=== PATIENT | male | born 1990 | race Hispanic/Latino ===

== ENCOUNTER 2018-12-04 16:43 | Inpatient (IN) | payer OTHER ==
[2018-12-04] MEDS ORDERED: NA CHLORIDE 0.9% 2,000 ML ONE (16:53)
[2018-12-04] MEDS ORDERED: LORazepam 2 MG/ML VIAL ONE ×3 (16:54→18:13)
[2018-12-04 17:17] LABS: Absolute Lymphocytes (CBC) 1.9 K/uL (0.7-4.9); Basophils % 0.3 % (0-1.3); Eosinophils % 0.9 % (0-4.4); Hematocrit 41.2 % (39.6-49.0); Lymphocytes % 13.4 % (15.3-44.8); MPV 9.6 fL (7.6-11.3); RBC Red Blood Cell Count 4.65 M/uL (4.33-5.43)
[2018-12-04 17:28] LABS: Protime INR 1.34
[2018-12-04] MEDS ORDERED: D50W 25 GM/50 ML SYRINGE IV ONE (17:38)
[2018-12-04] MEDS ORDERED: ACETAMINOPHEN 650MG/RECT SUPP PR ONE (17:45)
[2018-12-04 17:51] LABS: Barbiturates NEGATIVE (NEGATIVE); Benzodiazepines NEGATIVE (NEGATIVE); Cocaine NEGATIVE (NEGATIVE); METHAMPHETAM NEGATIVE (NEGATIVE); Methadone NEGATIVE (NEGATIVE); Opiates NEGATIVE (NEGATIVE); Phencyclidine NEGATIVE (NEGATIVE); THC Cannibis NEGATIVE (NEGATIVE)
[2018-12-04 18:28] LABS: Urine Blood 3+ (NEG); Urine Glucose NEGATIVE (NEG); Urine Protein 2+ (NEG); Urine Specific Gravity >1.030 (1.005-1.030); Urine pH 5.5 (5.0-7.0)
--- NOTE | 2018-12-04 18:32 | RAD REPORT ---
EXAM DESCRIPTION: CT - Head Brain Wo Cont - 12/04/2018 6:12 pm CLINICAL HISTORY: Seizure, transient alteration of awareness COMPARISON: None. TECHNIQUE: Axial 5 mm thick images of the head were obtained without IV contrast. All CT scans are performed using dose optimization technique as appropriate and may include automated exposure control or mA/KV adjustment according to patient size. FINDINGS: No intracranial hemorrhage, mass, edema or shift of mid-line structures. No acute infarcti on changes seen. No abnormal extra-axial fluid collections. Ventricles are normal. Mastoid air cells are clear. Patchy ethmoid mucosal thickening. No air-fluid levels in the sinuses. No acute bony findings. IMPRESSION: Negative non-contrast CT head examination for acute or significant finding.
--- NOTE | 2018-12-04 18:49 | ER ---
Nurse's Notes [facility] Name: Mike Camp Age: 28 yrs Sex: Male : 1990 Arrival Date: 12/04/2018 Time: 16:48 Bed 4 Private MD: Diagnosis: Heat exhaustion, unspecified;Heat syncope;Heatstroke and sunstroke;Hyperthermia;Delirium due to known physiological condition Presentation: 12/04 16:49 Presenting complaint: EMS states: AMS AND SZ AFTER HEAT EXPOSURE. Transition of care: bp patient was not received from another setting of care. Onset of symptoms is unknown. Risk Assessment: Do you want to hurt yourself or someone else? Patient reports no desire to harm self or others. Initial Sepsis Screen: Does the patient meet any 2 criteria? Altered Mental Status. HR > 90 bpm. Yes Does the patient have a suspected source of infection? No. Patient's initial sepsis screen is negative. Care prior to arrival: Medication(s) given: Normal saline infusion, 1000 mL, IV initiated. 20 GA, in the right hand. 16:49 Method Of Arrival: EMS: [facility] bp 16:49 Acuity: PRADEEP 2 bp Triage Assessment: 16:51 General: Appears distressed, uncomfortable, Behavior is anxious, restless. Pain: Unable bp to use pain scale. Does not appear to understand pain scale. EENT: No deficits noted. Neuro: Level of Consciousness is confused, Oriented to person. Cardiovascular: Rhythm is. Cardiovascular: Rhythm is sinus tachycardia. Respiratory: Airway is patent Respiratory effort is even, unlabored, Respiratory pattern is regular, symmetrical. GI: No signs and/or symptoms were reported involving the gastrointestinal system. : No signs and/or symptoms were reported regarding the genitourinary system. Derm: No deficits noted. Musculoskeletal: No deficits noted. Historical: - Allergies: 16:51 No Known Allergies; bp - Home Meds: 16:51 Unable to obtain [Active]; bp - PMHx: 16:51 Unable to obtain; bp - Immunization history:: Adult Immunizations unknown. - Social history:: Smoking status: unknown. - Ebola Screening: : No symptoms or risks identified at this time. - History obtained from: EMS. Screenin:50 Abuse screen: Denies threats or abuse. Denies injuries from another. Nutritional bp screening: No deficits noted. Tuberculosis screening: No symptoms or risk factors identified. Fall Risk No fall in past 12 months (0 pts). No secondary diagnosis (0 pts). IV access (20 points). Ambulatory Aid- None/Bed Rest/Nurse Assist (0 pts). Gait- Normal/Bed Rest/Wheelchair (0 pts) Mental Status- Overestimates/Forgets Limitations (15 pts.). Total Blackburn Fall Scale indicates Low Risk Score (25-44 pts). Fall prevention measures have been instituted. Side Rails Up X 2 Placed close to Nursing Station Frequent Obs/Assesments occuring As available Patient and Family Educated on Fall Prevention Program and strategies. Assessment: 16:51 General: SEE TRIAGE NOTE. bp 17:27 Reassessment: VS IMPROVING, CORE TEMP STABLE AND DECREASING. bp 17:51 Reassessment: FAMILY AT B/S. PT REMAINS OBTUNDED, BUT VS IMPROVING. bp 18:23 Reassessment: PT RETURNED FROM CT. ALL CURRENT ORDERS COMPLETED. bp 19:00 Reassessment: Patient and/or family updated on plan of care and expected duration. Pain tl1 level reassessed. General: Appears in no apparent distress. Behavior is arouses to sternal rub. Pain: Unable to use pain scale. Patient is unresponsive. 19:35 Reassessment: Dr. Miller at bedside, BP 80/47; Verbal order to administer NS 1 L lp1 bolus at this time. 21:27 Reassessment: when preparing the patient to move to ICU we noted that the patient's dm5 clothes were not in the room. We contacted the ambulance service that brought the patient and they stated they did not have the patient's clothes. Spoke with coworker to see if they were with the patient when the patient was loaded on the ambulance. They were not but they were able to contact someone that was. The coworker stated the patient's clothes and work boots were placed in the patient's truck and that the coworker here has access to the patient's truck to retrieve those items. I called ICU to notify parent's of the patient that the patient's clothes and work boots were located in his truck. Vital Signs: 16:51 BP 110 / 53; Pulse 143; Resp 21; Temp 103(A); Pulse Ox 100% ; Weight 68.04 kg; bp 17:00 BP 114 / 60; Pulse 128; Resp 34; Temp 100.1(C); Pulse Ox 97% on 2 lpm NC; bp 17:27 BP 106 / 50; Pulse 108; Resp 25; Temp 100.0(C); Pulse Ox 100% ; bp 17:50 BP 110 / 53; Pulse 100; Resp 22; Temp 99.1; Pulse Ox 100% ; bp 18:24 BP 105 / 56; Pulse 105; Resp 26; Temp 99.1; Pulse Ox 100% ; bp 19:14 BP 88 / 60; Pulse 101; Resp 20; Temp 98.8; Pulse Ox 100% ; Pain 0/10; tl1 19:43 BP 96 / 55; Pulse 97; Resp 20; Temp 98.6(C); Pulse Ox 100% ; lp1 NIH Stroke Scale Scores: 16:51 NIHSS Score: 4 bp ED Course: 16:48 Patient arrived in ED. bp 16:50 Triage completed. bp 16:50 Derrick Avilez MD is Attending Physician. rn 16:50 Patient has correct armband on for positive identification. Placed in gown. Bed in low bp position. Call light in reach. Side rails up X2. automotive parts advisor on. Pulse ox on. NIBP on. 16:51 Arm band placed on. bp 16:51 Maintain EMS IV. Dressing intact. Good blood return noted. Site clean \T\ dry. Gauge \T\ bp site: 20 GAUGE R HAND. 16:55 Inserted saline lock: 18 gauge in right antecubital area, using aseptic technique. bp Blood collected. 17:12 EKG done, by waste management recycling technician. reviewed by Derrick Avilez MD. dt2 17:27 Baldev Yanez, RN is Primary Nurse. bp 17:58 Radiology exam delayed due to SAID TO WAIT SO THEY CAN GIVE PATIENT MORE ml MEDICATION. 18:12 CT Head Brain wo Cont In Process Unspecified. EDMS 18:48 Ladi Tilley MD is Hospitalizing Provider. rn 18:55 XRAY Chest (1 view) In Process Unspecified. EDMS 21:09 No provider procedures requiring assistance completed. Patient admitted, IV remains in tl1 place. Administered Medications: 16:51 Drug: Ativan 2 mg Route: IVP; Site: right antecubital; bp 17:36 Follow up: Response: No adverse reaction bp 16:52 Drug: NS 0.9% 1000 ml Route: IV; Rate: 1000 ml; Site: right hand; bp 19:00 Follow up: IV Status: Completed infusion; IV Intake: 1000ml tl1 16:52 Drug: NS 0.9% 1000 ml Route: IV; Rate: 1000 ml; Site: right antecubital; bp 19:00 Follow up: IV Status: Completed infusion tl1 17:35 Not Given (Other Intervention Used): Tylenol 1000 mg PO once bp 17:35 Drug: Tylenol Suppository 650 mg Route: UT; bp 17:49 Follow up: Response: No adverse reaction bp 17:35 Drug: Ativan 2 mg Route: IVP; Site: right antecubital; bp 17:49 Follow up: Response: No adverse reaction bp 17:35 Drug: D50W 50 ml Route: IVP; Site: right antecubital; bp 17:49 Follow up: Response: No adverse reaction bp 17:59 Drug: Ativan 2 mg Route: IVP; Site: right antecubital; la1 18:45 Follow up: Response: No adverse reaction tl1 19:13 Drug: Keppra 1000 mg Route: IV; Rate: 1 calculated rate; Site: right antecubital; tl1 19:31 Follow up: IV Status: Completed infusion; IV Intake: 100ml tl1 19:13 Drug: D5-1/2 NS with KCl 20 mEq/L 1000 ml Route: IV; Rate: 100 ml/hr; Site: right hand; tl1 21:10 Follow up: IV Status: Infusion continued upon admission tl1 19:35 Drug: NS 0.9% 1000 ml {Note: Verbal order by Dr. Miller.} Route: IV; Rate: 1000 ml; lp1 Site: right antecubital; 21:10 Follow up: IV Status: Completed infusion; IV Intake: 1000ml tl1 Point of Care Testing: Blood Glucose: 17:25 Blood Glucose: 64 mg/dL; ph 17:35 Blood Glucose: 132 mg/dL; iw Ranges: Intake: 19:00 IV: 1000ml; Total: 1000ml. tl1 19:31 IV: 100ml; Total: 1100ml. tl1 21:08 PO: 0ml; IV: 4000ml; Total: 5100ml. tl1 21:10 IV: 1000ml; Total: 6100ml. tl1 Output: 21:08 Urine: 600ml ([place]); Total: 600ml. tl1 Outcome: 18:49 Decision to Hospitalize by Provider. rn 21:09 Admitted to ICU accompanied by nurse, via stretcher, with oxygen, on monitor, with tl1 chart, Report called to Carol COBB 21:09 critical 21:09 Instructed on the need for admit. 21:20 Patient left the ED. tl1 NIH Stroke Scale - NIH Stroke Score Date: 12/04/2018 Time: 16:51 Total Score = 4 1a. Level of Consciousness (LOC) - 1(Not Alert) 1b. Level of Consciousness (LOC) (Year \T\ Age) - 1(One) 1c. LOC Commands (Open \T\ Closes Eyes/Director Systems) - 1(One) 2. Best Gaze (Lateral Gaze Paresis) - 0(Normal) 3. Visual Field Loss - 0(No visual loss) 4. Facial Palsy - 0(Normal) 5a. Left Arm: Motor (10-second hold) - 0(No drift) 5b. Right Arm: Motor (10-second hold) - 0(No drift) 6a. Left Leg: Motor (5-second hold - always test supine) - 0(No drift) 6b. Right Leg: Motor (5-second hold - always test supine) - 0(No drift) 7. Limb Ataxia (finger/nose \T\ heel/gandhi - test with eyes open) - 0(Absent) 8. Sensory Loss (pinprick arms/legs/face) - 0(Normal) 9. Best Language: Aphasia (description/naming/reading) - 1(Mild to moderate aphasia) 10. Dysarthria (speech clarity - read or repeat words) - 0(Normal) 11. Extinction and Inattention (visual/tactile/auditory/spatial/personal) - 0(No abnormality) Initials: bp Signatures: Dispatcher [employer] EDAgustina Sam, RN RN dm5 Miroslava Brannon RN RN iw Lopez, Melissa ml Nieto, Roman, MD MD rn Pena, Laura, RN RN lp1 Miguel Calle RN RN la1 Shanika Bentley, RN RN tl1 Lola Flores RN Baldev Calderón ph RN RN bp [place], Sybil dt2 Corrections: (The following items were deleted from the chart) 21:19 21:13 Reassessment: No changes from previously documented assessment. Patient tl1 and/or family updated on plan of care and expected duration. Pain level reassessed. Patient states symptoms have improved. tl1
--- NOTE | 2018-12-04 18:50 | EDPHYS ---
Physician Documentation [facility] Name: Don Camp Age: 28 yrs Sex: Male : 1990 Arrival Date: 12/04/2018 Time: 16:48 Bed 4 Private MD: ED Physician Derrick Avilez HPI: 12/04 16:55 This 28 yrs old Male presents to ER via EMS with complaints of Altered Mental rn Status, Heat Exposure. 16:55 The patient presents with confusion, disorientation. Onset: The symptoms/episode rn began/occurred today. Possible causes: unknown. Current symptoms: In the emergency department the patient's symptoms are unchanged from the initial presentation. It is unknown whether or not the patient has had similar symptoms in the past. 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 Only given fluids by EMS, no meds. . Historical: - Allergies: 16:51 No Known Allergies; bp - Home Meds: 16:51 Unable to obtain [Active]; bp - PMHx: 16:51 Unable to obtain; bp - Immunization history:: Adult Immunizations unknown. - Social history:: Smoking status: unknown. - Ebola Screening: : No symptoms or risks identified at this time. - History obtained from: EMS. ROS: 16:55 Unable to obtain ROS due to altered mental status. rn Exam: 16:55 Constitutional: Well developed healthy appearing male who seems agitated, awake, rn answers questions with "don". No seizure like activity. Head/Face: Normocephalic, atraumatic. Eyes: Pupils 3mm, reactive and equal, no nystagmus. ENT: dry MM Neck: Trachea midline, no thyromegaly or masses palpated, and no cervical lymphadenopathy. Supple, full range of motion without nuchal rigidity, or vertebral point tenderness. No Meningismus. Cardiovascular: tachycardic, regular, no murmur Respiratory: + tachypnea with clear bilateral breath sounds Abdomen/GI: soft, non-tender Skin: Warm, diaphoretic, no petechiae or purpura MS/ Extremity: Pulses equal, no cyanosis. Neurovascular intact. Full, normal range of motion. Equal circumference. Neuro: Awake, alert, agitated, moves all 4 extremities 17:21 ECG was reviewed by the Attending Physician. rn Vital Signs: 16:51 BP 110 / 53; Pulse 143; Resp 21; Temp 103(A); Pulse Ox 100% ; Weight 68.04 kg; bp 17:00 BP 114 / 60; Pulse 128; Resp 34; Temp 100.1(C); Pulse Ox 97% on 2 lpm NC; bp 17:27 BP 106 / 50; Pulse 108; Resp 25; Temp 100.0(C); Pulse Ox 100% ; bp 17:50 BP 110 / 53; Pulse 100; Resp 22; Temp 99.1; Pulse Ox 100% ; bp 18:24 BP 105 / 56; Pulse 105; Resp 26; Temp 99.1; Pulse Ox 100% ; bp 19:14 BP 88 / 60; Pulse 101; Resp 20; Temp 98.8; Pulse Ox 100% ; Pain 0/10; tl1 19:43 BP 96 / 55; Pulse 97; Resp 20; Temp 98.6(C); Pulse Ox 100% ; lp1 NIH Stroke Scale Scores: 16:51 NIHSS Score: 4 bp Procedures: 18:47 Lumbar Puncture: Patient placed in left lateral decubitus position. Prepped with rn Betadine. Draped using sterile technique. Collected 8 ml's of clear fluid. Sample sent to lab. Puncture site dressed with band aid, Patient tolerated well. MDM: 16:50 Patient medically screened. rn 17:28 ED course: Pt with hypoglycemia, in 60s, given AMS, given 1 amp D50, will start D5 rn drip.. 18:03 ED course: Pt was showing improvement of vital signs, parents in room, updated, sat up rn and became more agitated with tremors, no gross seizure activity, 2 mg ativan given with resolution. Some urine output noted, and glucose 132. . 18:24 Differential Diagnosis: electrolyte abnormality, hypoglycemia, intracranial bleed, rn overdose, seizure, sepsis, volume depletion, heat exhaustion/heat stroke. Data reviewed: vital signs, nurses notes, lab test result(s), EKG, radiologic studies, CT scan, and as a result, I will admit patient. Counseling: I had a detailed discussion with the patient and/or guardian regarding: the historical points, exam findings, and any diagnostic results supporting the discharge/admit diagnosis, lab results, radiology results, the need for further work-up and treatment in the hospital. Response to treatment: the patient's symptoms have markedly improved after treatment, and as a result, I will admit patient. Admission orders: after a detailed discussion of the patient's condition and case, the admit orders are written by me. ED course: Pt admitted to Dr. Tilley, notified \\T\\ 1816. 18:29 ED course: Father states has known rash, similar to one on chest, has seen dermatology rn for it. . 18:47 ED course: CSF obtained to rule out infectious cause, although heat related illness rn still most likely. . 19:02 ED course: Family and best friend here, all deny that he is type to overdose, does not rn take daily medication, has never had this happen before, state first day on this big job for him, worked through lunch without breaks, refused water, and has been very stressed about performing well at this specific job. Has never taken drugs, and drug screen negative. . 12/04 16:51 Order name: Acetaminophen 12/04 16:51 Order name: Basic Metabolic Panel 12/04 16:51 Order name: CBC with Diff; Complete Time: 17:28 12/04 16:51 Order name: ETOH Level; Complete Time: 18:14 12/04 16:51 Order name: Hepatic Function 12/04 16:51 Order name: PT-INR; Complete Time: 17:36 12/04 16:51 Order name: Ptt, Activated; Complete Time: 17:36 12/04 16:51 Order name: Salicylate 12/04 16:51 Order name: Urine Drug Screen; Complete Time: 18:05 12/04 16:54 Order name: Lactate; Complete Time: 18:26 12/04 16:54 Order name: CK; Complete Time: 17:47 12/04 16:54 Order name: Blood Culture Adult (2) 12/04 16:54 Order name: Procalcitonin; Complete Time: 18:05 12/04 17:40 Order name: Glucose, Ancillary Testing; Complete Time: 17:44 EDWI 12/04 16:54 Order name: CT Head Brain wo Cont; Complete Time: 18:49 12/04 17:36 Order name: XRAY Chest (1 view) 12/04 17:43 Order name: Urine Dipstick--Ancillary (enter results); Complete Time: 18:49 [facility] 12/04 18:48 Order name: CSF Bacterial Antigens (tube 1) [facility] 12/04 18:48 Order name: Csf Culture [facility] 12/04 18:48 Order name: Fluid Cell Count,Body [facility] 12/04 18:48 Order name: Spinal Fluid Profile [facility] 12/04 18:49 Order name: CSF Culture [facility] 12/04 19:28 Order name: Glucose, Ancillary Testing [facility] 12/04 19:42 Order name: Glucose, Ancillary Testing [facility] 12/04 21:07 Order name: Lactate Sepsis 2 HR Follow-up [facility] 12/04 16:51 Order name: EKG; Complete Time: 16:52 12/04 16:51 Order name: EKG - Nurse/Tech; Complete Time: 17:01 12/04 16:51 Order name: IV Saline Lock; Complete Time: 17: 12/04 16:51 Order name: Labs collected and sent; Complete Time: 17: 12/04 16:51 Order name: Urine Dipstick-Ancillary (obtain specimen); Complete Time: 17: 12/04 18:48 Order name: LP Consents; Complete Time: 20:01 [facility] 12/04 18:48 Order name: LP Setup; Complete Time: 20:01 [facility] EC:21 Rate is 130 beats/min. Rhythm is regular. QRS [place] is Normal. IA interval is normal. rn QRS interval is normal. QT interval is normal. No Q waves. T waves are Normal. No ST changes noted. Clinical impression: Sinus tachycardia. Interpreted by me. Reviewed by me. Administered Medications: 16:51 Drug: Ativan 2 mg Route: IVP; Site: right antecubital; bp 17:36 Follow up: Response: No adverse reaction bp 16:52 Drug: NS 0.9% 1000 ml Route: IV; Rate: 1000 ml; Site: right hand; bp 19:00 Follow up: IV Status: Completed infusion; IV Intake: 1000ml tl1 16:52 Drug: NS 0.9% 1000 ml Route: IV; Rate: 1000 ml; Site: right antecubital; bp 19:00 Follow up: IV Status: Completed infusion tl1 17:35 Not Given (Other Intervention Used): Tylenol 1000 mg PO once bp 17:35 Drug: Tylenol Suppository 650 mg Route: IA; bp 17:49 Follow up: Response: No adverse reaction bp 17:35 Drug: Ativan 2 mg Route: IVP; Site: right antecubital; bp 17:49 Follow up: Response: No adverse reaction bp 17:35 Drug: D50W 50 ml Route: IVP; Site: right antecubital; bp 17:49 Follow up: Response: No adverse reaction bp 17:59 Drug: Ativan 2 mg Route: IVP; Site: right antecubital; la1 18:45 Follow up: Response: No adverse reaction tl1 19:13 Drug: Keppra 1000 mg Route: IV; Rate: 1 calculated rate; Site: right antecubital; tl1 19:31 Follow up: IV Status: Completed infusion; IV Intake: 100ml tl1 19:13 Drug: D5-1/2 NS with KCl 20 mEq/L 1000 ml Route: IV; Rate: 100 ml/hr; Site: right hand; tl1 21:10 Follow up: IV Status: Infusion continued upon admission tl1 19:35 Drug: NS 0.9% 1000 ml {Note: Verbal order by Dr. Miller.} Route: IV; Rate: 1000 ml; lp1 Site: right antecubital; 21:10 Follow up: IV Status: Completed infusion; IV Intake: 1000ml tl1 Point of Care Testing: Blood Glucose: 17:25 Blood Glucose: 64 mg/dL; ph 17:35 Blood Glucose: 132 mg/dL; iw Ranges: Critical Glucose Levels:Adult <50 mg/dl or >400 mg/dl <40 mg/dl or >180 mg/dl Disposition: 18:48 Critical Care:. rn Disposition: 12/04/18 18:49 Hospitalization ordered by Ladi Tilley for Inpatient Admission. Preliminary diagnosis are Heat exhaustion, unspecified, Heat syncope, Heatstroke and sunstroke, Hyperthermia, Delirium due to known physiological condition. - Bed requested for Intensive Care Unit. - Status is Inpatient Admission. tl1 - Condition is Stable. - Problem is new. - Symptoms have improved. UTI on Admission? No Critical care time excluding procedures: 18:48 Critical care time: Bedside Care: 35 minutes, Consultation: 5 minutes, Family rn Intervention: 5 minutes. Total time: 45 minutes NIH Stroke Scale - NIH Stroke Score Date: 12/04/2018 Time: 16:51 Total Score = 4 1a. Level of Consciousness (LOC) - 1(Not Alert) 1b. Level of Consciousness (LOC) (Year \\T\\ Age) - 1(One) 1c. LOC Commands (Open \\T\\ Closes Eyes/Beck Operator) - 1(One) 2. Best Gaze (Lateral Gaze Paresis) - 0(Normal) 3. Visual Field Loss - 0(No visual loss) 4. Facial Palsy - 0(Normal) 5a. Left Arm: Motor (10-second hold) - 0(No drift) 5b. Right Arm: Motor (10-second hold) - 0(No drift) 6a. Left Leg: Motor (5-second hold - always test supine) - 0(No drift) 6b. Right Leg: Motor (5-second hold - always test supine) - 0(No drift) 7. Limb Ataxia (finger/nose \\T\\ heel/gandhi - test with eyes open) - 0(Absent) 8. Sensory Loss (pinprick arms/legs/face) - 0(Normal) 9. Best Language: Aphasia (description/naming/reading) - 1(Mild to moderate aphasia) 10. Dysarthria (speech clarity - read or repeat words) - 0(Normal) 11. Extinction and Inattention (visual/tactile/auditory/spatial/personal) - 0(No abnormality) Initials: bp Signatures: Dispatcher [employer] [facility] Derrick Avilez MD MD rn Martinez, Eric em1 Karley Marquez RN RN lp1 Miguel Calle RN RN la1 Shanika Bentley, RN RN tl1 Nivia Camp, RN RN cg Baldev Yanez RN RN bp Corrections: (The following items were deleted from the chart) 19:22 18:49 CSF Bacterial Antigens (Tube 1 ordered. [facility] EDWI 20:21 18:49 Hospitalization Ordered by Ladi Tilley MD for Inpatient Admission. cg Preliminary diagnosis is Heat exhaustion, unspecified; Heat syncope; Heatstroke and sunstroke; Hyperthermia; Delirium due to known physiological condition. Bed requested for Intensive Care Unit. Status is Inpatient Admission. Condition is Stable. Problem is new. Symptoms have improved. UTI on Admission? No. rn 21:20 20:21 12/04/2018 18:49 Hospitalization Ordered by Ladi Tilley MD for tl1 Inpatient Admission. Preliminary diagnosis is Heat exhaustion, unspecified; Heat syncope; Heatstroke and sunstroke; Hyperthermia; Delirium due to known physiological condition. Bed requested for Intensive Care Unit. Status is Inpatient Admission. Condition is Stable. Problem is new. Symptoms have improved. UTI on Admission? No. cg
[2018-12-04] MEDS ORDERED: levETIRAcetam 1,000 MG in NA CHLORIDE 0.9% 100 ML IV ONE (19:00)
[2018-12-04] MEDS ORDERED: D5.45NS W/KCL 20MEQ 1,000 ML IV ONE (19:20)
[2018-12-04 19:30] LABS: CSF Glucose 92 mg/dL (40-70)
[2018-12-04 19:32] LABS: ALT/SGPT 18 U/L (12-78); AST/SGOT 20 U/L (15-37); Albumin 3.5 g/dL (3.4-5.0); Alkaline Phosphatase 59 U/L (45-117); BUN Blood Urea Nitrogen 20 mg/dL (7-18); Bicarbonate 17 mmol/L (21-32); Bilirubin Direct 0.2 mg/dL (0-0.2); Bilirubin Total 0.5 mg/dL (0.2-1.0); Glucose Level 102 mg/dL (74-106); Protein, Total 6.1 g/dL (6.4-8.2); Sodium Level 145 mmol/L (136-145)
[2018-12-04] MEDS ORDERED: NA CHLORIDE 0.9% 1,000 ML ONE (19:49)
--- NOTE | 2018-12-04 20:12 | P.HP ---
Certification for Inpatient Patient admitted to: Inpatient With expected LOS: >2 Midnights Practitioner: I am a practitioner with admitting privileges, knowledge of patient current condition, hospital course, and medical plan of care. Services: Services provided to patient in accordance with Admission requirements found in Title 42 Section 412.3 of the Code of Federal Regulations Patient History Date of Service: 12/04/18 Reason for admission: acute encephalopathy, heat exhaustion History of Present Illness: Mr Camp is a 28 years old male with pretty benign past medical history, who has been working outside today under high temperatures. 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 Subsequently, the patient was seen acting erratic, he was confused and disoriented. When EMS arrived found the patient febrile, and was shaking concerning for seizure activity. The patient was fine this morning before to start working. At arrival to ED, he remain disoriented, and became agitated, treated with IV Ativan. At my encounter, he was unresponsive, sedated. His BP at arrival was 110/53 HR 140 temp 103.0F. When fever decreased, HR also went down. Lab work remarkable for leukocytosis 13.9K, Creatinie 2.35, hypokalemia. CT head shows no acute abnormalities. - Past Medical/Surgical History Past Medical History: Reviewed- Non-Contributory Past Surgical History: Reviewed- Non-Contributory - Family History Family History: Reviewed- Non-Contributory - Social History Smoking Status: Never smoker CD- Drugs: No Place of Residence: Home Review of Systems is unable to be obtained (patient unresponsive) Physical Examination - Physical Exam General: In no apparent distress, Unresponsive HEENT: Atraumatic, Other (dry mucous membranes.), Sclerae nonicteric Neck: Supple, 2+ carotid pulse no bruit, No LAD, Without JVD or thyroid abnormality Respiratory: Clear to auscultation bilaterally, Normal air movement Cardiovascular: Regular rate/rhythm, Normal S1 S2 Gastrointestinal: Normal bowel sounds, No tenderness Musculoskeletal: No tenderness Integumentary: No rashes Neurological: Normal strength at 5/5 x4 extr, Normal tone, Sensation intact Lymphatics: No axilla or inguinal lymphadenopathy - Studies Laboratory Data (last 24 hrs) 12/04/18 16:50: PT 15.6 H, INR 1.34, APTT 23.8 L 12/04/18 16:50: WBC 13.9 H, Hgb 14.0, Hct 41.2, Plt Count 181 12/04/18 16:50: Sodium 145, Potassium 3.0 L, BUN 20 H, Creatinine 2.23 H, Glucose 102, Total Bilirubin 0.5, AST 20, ALT 18, Alkaline Phosphatase 59 Assessment and Plan - Problems (Diagnosis) (1) Acute encephalopathy Current Visit: Yes Status: Acute (2) Heat exhaustion Current Visit: Yes Status: Acute Qualifiers: Encounter type: initial encounter Qualified Code(s): T67.5XXA - Heat exhaustion, unspecified, initial encounter (3) Hypokalemia Current Visit: Yes Status: Acute (4) Acute renal injury Current Visit: Yes Status: Acute - Plan The patient will be admitted to ICU due to acute encephalopathy, acute renal injury, electrolyte dysfunction with possible seizure activity secondary to heat exhaustion. The patient had a LP done, W[employer] INST[employer]ER fluid analysis was negative. Will continue with aggressive IV fluid infusion, close monitoring of sensorial changes. - Advance Directives Does patient have a Living Will: No Does patient have a Durable POA for Healthcare: No - Code Status/Comfort Care Code Status Assessed: Yes Code Status: Full Code Critical Care: Yes (30 minutes critical care management)
[2018-12-04 20:14] LABS: Body Fluid Source CSF; Fluid Total Volume 11 ml
[2018-12-04 20:15] LABS: Appearance CLEAR (CLEAR); Body Fluid WBC 3 /mm^3; Color of fluid Colorless (COLORLESS)
[2018-12-04 20:20] LABS: Appearance CLEAR (CLEAR); Body Fluid Source CSF; Body Fluid WBC 3 /mm^3; Color of fluid Colorless (COLORLESS)
--- NOTE | 2018-12-04 20:44 | RAD REPORT ---
EXAM DESCRIPTION: RAD - Chest Single View - 12/04/2018 6:57 pm CLINICAL HISTORY: Transient alteration of awareness COMPARISON: None. TECHNIQUE: AP portable chest image was obtained 1854 hour . FINDINGS: Lung volumes are low. No focal lung parenchymal process. Heart and vasculature are normal. No measurable pleural effusion and no pneumothorax. No acute bony abnormality seen. No acute aortic findings suspected. IMPRESSION: No acute cardiopulmonary process.
[2018-12-04] MEDS ORDERED: ACETAMINOPHEN 500 MG TAB PO PRN (21:58)
[2018-12-04] MEDS ORDERED: ONDANSETRON 4 MG/2 ML VIAL IV PRN (21:58)
[2018-12-04] MEDS: NA CHLORIDE 0.9% 1,000 ML IV SCH (21:58)
[2018-12-04] MEDS ORDERED: ACETAMINOPHEN 650MG/RECT SUPP RECT PRN (21:58)
[2018-12-04] MEDS ORDERED: LEVETIRACETAM 500 MG/5 ML VIAL IV ONE (22:18)
[2018-12-04] MEDS ORDERED: NA CHLORIDE 0.9% 100 ML ONE (22:19)
[2018-12-05 05:39] LABS: Absolute Lymphocytes (CBC) 2.1 K/uL (0.7-4.9); Basophils % 0.4 % (0-1.3); Eosinophils % 0.1 % (0-4.4); Hematocrit 39.9 % (39.6-49.0); Lymphocytes % 20.5 % (15.3-44.8); MPV 8.4 fL (7.6-11.3); Monocytes % 10.8 % (3.3-12.3); RBC Red Blood Cell Count 4.59 M/uL (4.33-5.43)
[2018-12-05 05:56] LABS: Blood Morphology Comment NOT SEEN (NOT SEEN); Platelet Estimate DECR; Urine White Blood Cell Casts OK
[2018-12-05] MEDS: NA CHLORIDE 0.9% 1,000 ML IV SCH ×2 (06:09→17:35)
[2018-12-05 06:21] LABS: Magnesium 1.8 mg/dL (1.8-2.4); Potassium 3.9 mmol/L (3.5-5.1)
[2018-12-05] MEDS ORDERED: POTASSIUM 25 MEQ EFFERV TAB PO ONE (07:00)
[2018-12-05] MEDS ORDERED: MAGNESIUM SULFATE 1 gm IVPB 1 GM/100 ML BAG IV ONE (07:00)
--- NOTE | 2018-12-05 09:58 | EKG ---
Test Date: 2018-12-04 Test Time: 17:02:24 Retail Marketing Executive: OLI MEASUREMENT RESULTS: Intervals: Rate: 130 WI: 140 QRSD: 90 QT: 310 QTc: 456 Gautier: P: 58 WI: 140 QRS: 35 T: 48 INTERPRETIVE STATEMENTS: Sinus tachycardia Borderline ECG No previous ECG available for comparison Electronically Signed On 12-05-18 09:57:09 CDT by Amor Davis
--- NOTE | 2018-12-05 11:07 | P.CNS ---
Date of Consult: 12/05/18 Reason for Consult: MARICARMEN , rhabdomyolysis Chief Complaint: acute encephalopathy, heat exhaustion History of Present Illness: A 28 years old male with no significant PMHx pt presented with weakness, AMS pt was working in closed area with high Temp, found to have fever , a in ER 110/53 HR 140 temp 103.0F. Creatinie 2.35, hypokalemia. CT head shows no acute abnormalities. currently , no chest pain,, palpitation, nausea, vomiting or diarrhea Allergies No Known Allergies Allergy (Verified 12/04/18 22:01) Home Medications: Loratadine [Claritin] 10 mg PO DAILY PRN 12/04/18 - Past Medical/Surgical History Diabetic: No -: seasonal allergies -: Right inguinal hernia repair -: appendectomy - Family History Father Medical History: Hypertension, Lung disease - Social History Smoking Status: Unknown if ever smoked Alcohol use: Yes CD- Drugs: No Caffeine use: Yes Place of Residence: Home Physical Examination Temp Pulse Resp BP Pulse Ox 98.9 F 85 16 99/46 L 98 12/05/18 04:00 12/05/18 07:00 12/05/18 07:00 12/05/18 07:00 12/05/18 07:00 General: In no apparent distress, Oriented x3 HEENT: Atraumatic Neck: Supple, Without JVD or thyroid abnormality Respiratory: Clear to auscultation bilaterally, Normal air movement Cardiovascular: No edema, Normal pulses, Regular rate/rhythm, Normal S1 S2, No gallops, No murmurs Gastrointestinal: Normal bowel sounds, Soft and benign, Non-distended Laboratory Data (last 24 hrs) 12/04/18 16:50: PT 15.6 H, INR 1.34, APTT 23.8 L 12/04/18 16:50: WBC 13.9 H, Hgb 14.0, Hct 41.2, Plt Count 181 12/04/18 16:50: Sodium 145, Potassium 3.0 L, BUN 20 H, Creatinine 2.23 H, Glucose 102, Total Bilirubin 0.5, AST 20, ALT 18, Alkaline Phosphatase 59 - Problems (1) Acute renal injury Current Visit: Yes Status: Acute Conclusions/Impression: MARICARMEN due to Dehydration improved on IVF will order renal US UA: with bld and Prot , 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
--- NOTE | 2018-12-05 11:30 | P.PN ---
Subjective Date of Service: 12/05/18 Chief Complaint: acute encephalopathy, heat exhaustion Patient seen and examined at bedside with RN. Chart reviewed. Case discussed with nephrology. Patient at this time doing much better than before. No complaints to offer overnight. Review of Systems 10-point ROS is otherwise unremarkable Physical Examination - Vital Signs Temperature: 98.9 F Blood Pressure: 117/68 Pulse: 81 Respirations: 13 Pulse Ox (%): 99 - Physical Exam General: Alert, In no apparent distress HEENT: Atraumatic, PERRLA, EOMI Neck: Supple, JVD not distended Respiratory: Clear to auscultation bilaterally, Normal air movement Cardiovascular: Regular rate/rhythm, Normal S1 S2 Gastrointestinal: Normal bowel sounds, No tenderness Musculoskeletal: No tenderness Integumentary: No rashes Neurological: Normal speech, Normal tone, Normal affect Lymphatics: No axilla or inguinal lymphadenopathy - Studies Laboratory Data (last 24 hrs) 12/04/18 16:50: PT 15.6 H, INR 1.34, APTT 23.8 L 12/04/18 16:50: WBC 13.9 H, Hgb 14.0, Hct 41.2, Plt Count 181 12/04/18 16:50: Sodium 145, Potassium 3.0 L, BUN 20 H, Creatinine 2.23 H, Glucose 102, Total Bilirubin 0.5, AST 20, ALT 18, Alkaline Phosphatase 59 Microbiology Data (last 24 hrs): 12/04/18 18:45 Cerebral Spinal Fluid Gram Stain - Final Medications List Reviewed: Yes Assessment And Plan - Current Problems (Diagnosis) (1) Heat exhaustion Current Visit: Yes Status: Acute Plan: Patient with heat exhaustion most likely secondary to working outside in the heat causing a KI and acute encephalopathy -temperature has been within normal limits -status post 4 L of normal saline currently on IV fluids at 125 mL an hr -will continue monitor patient closely here in the hospital Qualifiers: Encounter type: initial encounter Qualified Code(s): T67.5XXA - Heat exhaustion, unspecified, initial encounter (2) Acute encephalopathy Current Visit: Yes Status: Acute Plan: Acute encephalopathy most likely secondary to heat exhaustion -currently patient is alert and oriented x3 -head CT is negative at this time -CSF fluid negative for any infectious cause (3) Rhabdomyolysis Current Visit: Yes Status: Acute Plan: Patient with rhabdomyolysis most likely secondary to heat exhaustion -IV fluids at 125 mL an hr -CK is elevated at 5096 today -will continue with fluids and monitor patient closely Qualifiers: Rhabdomyolysis type: non-traumatic Qualified Code(s): M62.82 - Rhabdomyolysis (4) Acute renal injury Current Visit: Yes Status: Acute Plan: A KI most likely secondary to rhabdo -BUN and creatinine improved markedly today -nephrology consulted. Appreciated recommendations at this time - Plan Pending clinical improvement. Will go ahead and transfer patient to the regular [facility] floor will monitor for next 24-48 hr for improvement. Discharge Plan: Home Plan to discharge in: Greater than 2 days - Code Status/Comfort Care Code Status Assessed: Yes Critical Care: No
--- NOTE | 2018-12-05 20:49 | RAD REPORT ---
EXAM DESCRIPTION: US - Renal Ultrasound-Complete - 12/05/2018 8:32 pm CLINICAL HISTORY: MARICARMEN Flank pain COMPARISON: No comparisons FINDINGS: Both kidneys are normal in size, shape and echotexture. The right kidney measures 10.2 x 4.5 x 4.4 cm. No hydronephrosis, focal mass or perinephric fluid. The left kidney measures 10.5 x 5.9 x 4.8 cm. No hydronephrosis, focal mass or perinephric fluid. The urinary bladder is incompletely distended without gross abnormality seen. IMPRESSION: Unremarkable renal sonogram.
[2018-12-06] MEDS: NA CHLORIDE 0.9% 1,000 ML IV SCH ×4 (01:27→19:35)
[2018-12-06 06:14] LABS: Magnesium 2.3 mg/dL (1.8-2.4)
--- NOTE | 2018-12-06 11:49 | P.PN ---
Subjective Date of Service: 12/06/18 Chief Complaint: acute encephalopathy, heat exhaustion Subjective: Improving Subjective pt with no PMHx, presented with AMS due to heat stroke, found to have MARICARMEN nina hazel Today no new complaints Cr down to normal will rpt CPK level Pt can be discharged of CPK <1000 Physical Examination - Vital Signs Temperature: 98.4 F Blood Pressure: 101/62 Pulse: 80 Respirations: 16 Pulse Ox (%): 98 - Physical Exam General: Alert, In no apparent distress, Oriented x3 HEENT: Atraumatic Neck: Supple, JVD not distended, No Thyromegaly, Without JVD or thyroid abnormality Respiratory: Clear to auscultation bilaterally, Normal air movement Cardiovascular: No edema, Normal pulses, Regular rate/rhythm, Normal S1 S2, No gallops, No rubs, No murmurs Gastrointestinal: Normal bowel sounds, Soft and benign Musculoskeletal: No swelling, No tenderness - Studies Microbiology Data (last 24 hrs): 12/04/18 18:45 Cerebral Spinal Fluid Gram Stain - Final Medications List Reviewed: Yes Assessment And Plan - Current Problems (Diagnosis) (1) Acute renal injury Current Visit: Yes Status: Acute - Plan MARICARMEN resolved due to Dehydration improved on IVF UA: with bld and Prot , 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
--- NOTE | 2018-12-06 12:23 | P.DS ---
Admission Date: 12/04/18 Discharge Date: 12/06/18 Disposition: ROUTINE DISCHARGE Discharge Condition: GOOD Reason for Admission: acute encephalopathy, heat exhaustion - Problems (1) Heat exhaustion Current Visit: Yes Status: Acute Qualifiers: Encounter type: initial encounter Qualified Code(s): T67.5XXA - Heat exhaustion, unspecified, initial encounter (2) Acute encephalopathy Current Visit: Yes Status: Acute (3) Rhabdomyolysis Current Visit: Yes Status: Acute Qualifiers: Rhabdomyolysis type: non-traumatic Qualified Code(s): M62.82 - Rhabdomyolysis (4) Acute renal injury Current Visit: Yes Status: Acute Brief History of Present Illness: Conrado is a 28 years old male with pretty benign past medical history, who has been working outside today under high temperatures. 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 Subsequently, the patient was seen acting erratic, he was confused and disoriented. When EMS arrived found the patient febrile, and was shaking concerning for seizure activity. The patient was fine this morning before to start working. At arrival to ED, he remain disoriented, and became agitated, treated with IV Ativan. At my encounter, he was unresponsive, sedated. His BP at arrival was 110/53 HR 140 temp 103.0F. When fever decreased, HR also went down. Lab work remarkable for leukocytosis 13.9K, Creatinie 2.35, hypokalemia. CT head shows no acute abnormalities. Hospital Course: Overall during the hospital stay patient remained stable Patient was initially admitted to the hospital for heat exhaustion was found to have elevated temperature and acute encephalopathy. Patient was admitted to the hospital with IV fluids and was monitored closely here in the hospital for 48 hr. At 48 hr patient had no acute events noted from the heat exhaustion and thus was discharged home under stable condition. Nephrology was consulted to monitor the kidney function which did improve while he was on IV fluids here in the hospital. CPK did improve here in the hospital as well. Patient was asked to follow up with primary care provider and not to work outside for the next couple of weeks to recover. Patient demonstrate understanding and thus was discharged home under stable condition Vital Signs/Physical Exam: Temp Pulse Resp BP Pulse Ox 98.4 F 80 16 101/62 98 12/06/18 11:49 12/06/18 11:49 12/06/18 11:49 12/06/18 11:49 12/06/18 11:49 General: Alert, In no apparent distress HEENT: Atraumatic, PERRLA, EOMI Neck: Supple, JVD not distended Respiratory: Clear to auscultation bilaterally, Normal air movement Cardiovascular: Regular rate/rhythm, Normal S1 S2 Gastrointestinal: Normal bowel sounds, No tenderness Musculoskeletal: No tenderness Integumentary: No rashes Neurological: Normal speech, Normal tone, Normal affect Lymphatics: No axilla or inguinal lymphadenopathy Laboratory Data at Discharge: WBC 10.2 K/uL (4.3-10.9) D 12/05/18 05:21 Hgb 14.2 g/dL (13.6-17.9) 12/05/18 05:21 Hct 39.9 % (39.6-49.0) 12/05/18 05:21 Plt Count 53 K/uL (152-406) L D 12/05/18 05:21 PT 15.6 SECONDS (9.5-12.5) H 12/04/18 16:50 INR 1.34 12/04/18 16:50 APTT 23.8 SECONDS (24.3-36.9) L 12/04/18 16:50 Sodium 144 mmol/L (136-145) 12/06/18 05:39 Potassium 4.0 mmol/L (3.5-5.1) 12/06/18 05:39 BUN 9 mg/dL (7-18) 12/06/18 05:39 Creatinine 1.05 mg/dL (0.55-1.3) 12/06/18 05:39 Glucose 78 mg/dL (74-106) 12/06/18 05:39 Magnesium 2.3 mg/dL (1.8-2.4) D 12/06/18 05:39 Total Bilirubin 0.5 mg/dL (0.2-1.0) 12/04/18 16:50 AST 20 U/L (15-37) 12/04/18 16:50 ALT 18 U/L (12-78) 12/04/18 16:50 Alkaline Phosphatase 59 U/L (45-117) 12/04/18 16:50 Home Medications: Loratadine [Claritin*] 10 mg PO DAILY PRN 12/04/18 Diet: Regular Activity: Ad tori
[2018-12-06 12:39] LABS: CKMB Creatine Kinase MB 11.7 ng/mL (0.3-3.6)
[2018-12-07] MEDS: NA CHLORIDE 0.9% 1,000 ML IV SCH ×2 (00:24→06:07)
[2018-12-07 20:53] LABS: HBsAG Nonreactive (Nonreactive); Hepatitis A IgM Antibody Nonreactive
[2018-12-08 10:16] LABS: HIV AG/AB 4TH GEN Non-reactive (Non-reactive)
== END 2018-12-07 09:50 | disposition home or self-care (01) | DRG 923 ==
LOC: ER 16:43 → ERHOLD 20:03 → 3RD-ICU 20:42 → 4TH 12-05 15:35
PROVIDERS: ADMIT Family Medicine; ATTEND Family Medicine
PROC: 009U3ZX Drainage of Spinal Canal, Percutaneous Approach, Diagnostic (ICD-10-PCS; principal; 2018-12-04)
DX: T67.5XXA Heat exhaustion, unspecified, initial encounter (principal); G93.40 Encephalopathy, unspecified; N17.9 Acute kidney failure, unspecified; M62.82 Rhabdomyolysis; E86.0 Dehydration; D69.6 Thrombocytopenia, unspecified; E87.6 Hypokalemia; X30.XXXA Exposure to excessive natural heat, initial encounter; Y93.9 Activity, unspecified; Y92.69 Other specified industrial and construction area as the place of occurrence of the external cause; Y99.0 Civilian activity done for income or pay
CPT/HCPCS: 36415; 62270; 70450; 71045; 76770; 80048; 80074; 80076; 80307; 80320; 80329; 81003; 82550; 82553; 82945; 82962; 83605; 83735; 84145; 84157; 85025; 85610; 85730; 87040; 87070; 87389; 89050; 93005; 94760; 96361; 96365; 96375; 99285; G0433; J1953; J3475; J7030